=== PATIENT | male | born 1980 | race Caucasian/White ===

== ENCOUNTER 2020-08-30 06:34 | Emergency (ER) | payer MEDICAID ==
[~2020-08-30] VITALS: Ht 180.3 cm; Wt 75.0 kg
[~2020-08-30 06:34] MED LIST: AMOX1TAB12 PO; OXYC1TAB14 PO
[2020-08-30 06:39] VITALS: BP 136/79
--- NOTE | 2020-08-30 07:03 | NUR ---
Suture Removal from mouth and behind ear placed approx 3 weeks he states. Carolina EISENBERG at bedside for suture removal.
--- NOTE | 2020-08-30 07:13 | NUR ---
Patient/Caregiver given discharge instructions and they have confirmed that they understand the instructions. Patient ambulatory with steady gait.
== END 2020-08-30 07:17 | disposition home or self-care (01) ==
LOC: ED 07:05
DX: T81.89XA Other complications of procedures, not elsewhere classified, initial encounter (principal); Z59.0 Homelessness
CPT/HCPCS: 99281